=== PATIENT | female | born 1955 | race Two or more races ===

== ENCOUNTER 2025-03-04 22:42 | Inpatient (IN) | payer OTHER ==
[~2025-03-04] VITALS: Ht 157.5 cm; Wt 99.6 kg
[~2025-03-04 22:42] MED LIST: ALBU108A5 IN; AMIO200T33 PO; APIX5TAB PO; LOSA-534 PO; METO25TA5 PO; PERCOT PO; PRAV20TA3 PO; TRAZ-181 PO
[2025-03-04] MEDS: ALBUTEROL SULF 2.5 MG/0.5ML(0.5%) NEB SOLN NEB ONE ×2 (23:09→23:59)
[2025-03-04] MEDS: IPRATROPIUM BROM 0.5 MG/2.5ML INH SOL NEB ONE (23:10)
--- NOTE | 2025-03-04 23:10 | ECG ---
[facility] Test Date: 2025-03-04 Test Time: 23:08:52 Pat Name: SOFIA FELIX Department: ED Room: 0273 Gender: F Hand Decorator: mitchell : 1955 Requested By: EMERGENCY EMERGENCY Order Number: [id number] Reading MD: Facundo Oden Measurements Intervals [place] Rate: 74 P: 58 CT: 160 QRS: 43 QRSD: 93 T: 47 QT: 398 QTc: 442 Interpretive Statements Sinus rhythm Low voltage, precordial leads Electronically Signed On 03-07-2025 15:26:02 PST by Facundo Oden Please click the below link to view image of tracing.
--- NOTE | 2025-03-04 23:41 | ED.PDOC ---
History of Present Illness HPI Comments 70-year-old female who came to ER due to shortness of breath. Patient does have history of hypertension and asthma. States for the past week she has been experiencing dry cough and shortness of breath. Patient was seen 5 days ago by her primary care provider, was prescribed azithromycin and promethazine but offered no relief. Inhalers taken offering no relief. Progressive worsening of shortness of breath with wheezing and chest tightness. Saturating 94% on room air upon arrival. REVIEW OF SYSTEMS: General: No fever, no chills, or fatigue HEENT: No sore throat, no earache, no congestion, no neck pain. Cardiac: (+) chest pain. No palpitations. Lungs: (+) shortness of breath, (+) cough. (+) wheezing GI: No nausea, no vomiting, no diarrhea, no constipation, no abdominal pain : No dysuria, frequency, or urgency. No hematuria. Musculoskeletal: No joint pain , no joint swelling, no extremity edema. Skin: No rash, no itching. Neuro: No headache, no dizziness, no weakness EXAM: General: Awake, alert and oriented. No acute distress. Skin: Skin in warm, dry and intact. Appropriate color for ethnicity. HEENT: The head is normocephalic and atraumatic. Conjunctivae are clear without exudates or hemorrhage. Sclera is non-icteric. EOM are intact. No signs of nystagmus. Eyelids are normal in appearance without swelling or lesions. Oral mucosa is pink and moist Neck: The neck is supple with normal range of motion. No JVD. Cardiac: Heart rate and rhythm are normal. No murmurs, gallops, or rubs are auscultated. Respiratory: No signs of respiratory distress. Bilateral wheezing Abdominal: Abdomen is soft, non-tender without distention. Bowel sounds are present and normoactive in all four quadrants. Extremities: Upper and lower extremities are atraumatic in appearance without deformity or edema. Neurological: The patient is awake, alert and oriented to person, place, and time with normal speech. Speech is clear. Normal gait Chief Complaint: Shortness of Breath Time Seen by MD: 23:41 Primary Care Provider: ROBERT Reviewed Notes: Nurses Notes Allergies: Coded Allergies: NO KNOWN ALLERGIES (Unverified , 11/24/22) Home Meds Active Scripts Metoprolol Tartrate (Metoprolol Tartrate) 25 Mg Tab, 0.5 TAB PO BID for 30 Days, #30 TAB 5 Refills Prov:MELISSA QUINONEZ MD 11/27/22 Amiodarone Hcl (Amiodarone Hcl) 200 Mg Tab, 1 TAB PO DAILY, #30 TAB 5 Refills Prov:MELISSA QUINONEZ MD 11/27/22 Apixaban Base (ELIQUIS) 5 Mg Tab, 5 MG PO BID for 30 Days, #60 TAB Prov:MELISSA QUINONEZ MD 11/27/22 Reported Medications Albuterol Sulfate (Albuterol Sulfate Hfa) 108 Mcg/Act Aer, 90 MCG IN, AER 11/25/22 Losartan Potassium (Losartan Potassium) 50 Mg Tab, 50 MG PO DAILY for 30 Days, MG 11/25/22 Oxycodone W/ Acetaminophen (Percocet 5/325MG) 1 Tab Tb, 1 TAB PO QID, #120 TAB 11/25/22 Trazodone HCl (Trazodone Hydrochloride) 50 Mg Tab, 50 MG PO PRN for BED TIME, TAB 11/25/22 Pravastatin Sodium (PRAVACHOL TABLET) 20 Mg Tb, 80 MG PO DAILY, TAB 11/25/22 Information Source: Patient Mode of Arrival: Ambulatory Past Medical History PAST MEDICAL HISTORY: AFIB, Asthma, High Lipids, HTN Surgical History: Cholecystectomy, Hysterectomy, Tonsillectomy REPLACER History: Denies all REPLACER Hx Family History Family History: Reviewed,noncontributory to illness Social History Smoker: Non-Smoker Alcohol: Denies ETOH Use Drugs: Denies Drug Use Lives In: Home Was a procedure done? Was a procedure done?: No EKG EKG : Pulse Rate (adult): 74 Cardiac Rhythm: NSR Comments No STEMI Differential Dx Considerations may include: Differential diagnoses considered includebut arenot limited to acute Bronchitis, Asthma, COPD, Pneumothorax, PE, CHF, Pulmonary HTN, Anemia, CO Poisoning, Methemoglobinemia, Hyperventilation, Metabolic Acidosis, Pulmonary Edema, Pneumonia, ACS, Pericardial Tamponade, Anxiety, other X-Ray, Labs, Meds, VS Vital Signs Date Time Temp Pulse Resp B/P (MAP) Pulse Ox O2 Delivery O2 Flow Rate FiO2 03/05/25 00:24 98.1 92 20 143/57 95 21 98.1 03/05/25 00:24 98.1 92 20 143/57 (85) 95 98.1 03/05/25 00:24 20 95 Room Air* 0 03/04/25 23:59 24 94 Room Air* 0 03/04/25 23:41 74 03/04/25 23:10 22 92 Room Air* 0 03/04/25 23:08 74 03/04/25 22:44 97.3 80 20 170/80 94 97.3 Lab Test 03/05/25 00:19 03/04/25 23:56 Range/Units Urine Color Yellow Yellow Urine Clarity Turbid H Clear Urine pH 6.0 5.0-9.0 Urine Specific [place] 1.018 1.001-1.035 Urine Protein Trace H Negative Urine Ketones Negative Negative Urine Blood Negative Negative /uL Urine Nitrite Negative Negative Urine Bilirubin Negative Negative Urine Urobilinogen Normal Negative mg/dL Urine Leukocyte Esterase 2+ Negative /uL Urine RBC 2 0 - 4 /hpf Urine Microscopic WBC 6 H 0-5 /HPF Urine Squamous Epithelial Cells Few <5 /hpf Urine Calcium Oxalate Crystals Mod None Seen Urine Bacteria None seen None Seen /hpf Urine Hyaline Casts Few 0 - 2 /lpf Urine Mucus Few None Seen Urine Glucose Normal Normal mg/dL White Blood Count 10.5 4.4-10.8 10^3/uL Red Blood Count 4.35 4.0-5.20 10^6/uL Hemoglobin 14.2 12.2-16.2 g/dL Hematocrit 41.3 36.0-46.0 % Mean Corpuscular Volume 94.9 80.0-100.0 fL Mean Corpuscular Hemoglobin 32.5 H 28.0-32.0 pg Mean Corpuscular Hemoglobin Concent 34.3 32.0-36.0 g/dL Red Cell Distribution Width 13.5 11.8-14.3 % Platelet Count 346 140-450 10^3/uL Mean Platelet Volume 7.8 6.9-10.8 fL Neutrophils (%) (Auto) 65.0 37.0-80.0 % Lymphocytes (%) (Auto) 21.9 10.0-50.0 % Monocytes (%) (Auto) 7.1 0.0-12.0 % Eosinophils (%) (Auto) 4.7 0.0-7.0 % Basophils (%) (Auto) 1.3 0.0-2.0 % Neutrophils # (Auto) 6.8 1.6-8.6 10 ^3/uL Lymphocytes # (Auto) 2.3 0.4-5.4 10 ^3/uL Monocytes # (Auto) 0.7 0-1.3 10 ^3/uL Eosinophils # (Auto) 0.5 0-0.8 10 ^3/uL Basophils # (Auto) 0.1 0-0.2 10 ^3/uL Nucleated Red Blood Cells 0.3 % Sodium Level 141 136-145 mmol/L Potassium Level 4.1 3.5-5.1 mmol/L Chloride Level 108 H 98-107 mmol/L Carbon Dioxide Level 22 20-31 mmol/L Anion Gap 11 5-15 Blood Urea Nitrogen 6 L 9-23 mg/dL Creatinine 0.62 0.550-1.02 mg/dL Glomerular Filtration Rate Calc 96 >90 mL/min BUN/Creatinine Ratio 9.7 L 10.0-20.0 Serum Glucose 119 H 74-106 mg/dL Calcium Level 9.2 8.7-10.4 mg/dL Troponin I High Sensitivity 4 </=34 ng/L B-Type Natriuretic Peptide 65.47 0-100 pg/mL CHEST RADIOGRAPH INDICATION: Cough, wheezing, shortness of breath TECHNIQUE: Frontal and lateral view of the chest was obtained COMPARISON: XY CHEST PORTABLE on DOS: 11/24/22 FINDINGS: Lines and Tubes: None Lungs: Mild left basilar opacity. Pleura: No effusion. No pneumothorax. Cardiomediastinal contours: Unremarkable Bones: Unremarkable IMPRESSION: Mild left basilar opacity, favored atelectatic although difficult to exclude pneumonia. Time of 1ST Reevaluation: 23:38 Reevaluation 1ST: Unchanged Patient Education/Counseling: Need For Follow Up Family Education/Counseling: No Family Present SEPSIS Sepsis Screen Date sepsis recognized/suspect: Mar 04, 2025 Time Sepsis recognized/suspect: 2244 Recent Procedure: No On Antibiotic Therapy: No Respiratory Rate >20: No Heart Rate >90: No Temp<36 C (96.8 F) or >38.3 C: No SBP <90 or MAP <65 mmHG: No New Acute Mental Status Change: No Is the patient on CPAP, BIPAP,: No Physician Orders Electrocardigram (03/04/25 22:49) Electrocardigram (03/04/25 23:49) Electrocardigram (03/05/25 01:49) Chest Two Views Routine (03/04/25 23:42) Vital Signs Date Time Temp Pulse Resp B/P (MAP) Pulse Ox O2 Delivery O2 Flow Rate FiO2 03/05/25 00:24 98.1 92 20 143/57 95 21 98.1 03/05/25 00:24 98.1 92 20 143/57 (85) 95 98.1 03/05/25 00:24 20 95 Room Air* 0 21 03/04/25 23:59 24 94 Room Air* 0 21 21 03/04/25 23:41 74 03/04/25 23:10 22 92 Room Air* 0 21 03/04/25 23:08 74 03/04/25 22:44 97.3 80 20 170/80 94 97.3 Laboratory Tests Test 03/04/25 23:56 White Blood Count 10.5 10^3/uL (4.4-10.8) Departure 1 Departure Time of Disposition: 01:31 Impression: Primary Impression: Pneumonia Disposition: 09 ADMITTED INPATIENT Condition: Stable Comments 70-year-old female with asthma, cough, shortness of breath. Failed course of outpatient antibiotics. IV antibiotics initiated in the ED. Patient admitted to hospitalist service for further treatment, evaluation and monitoring. Critical Care Note Critical Care Time?: No Stability Stability form required: No Heart Score Heart Score: Heart Score Response (Comments) Value History N/A 0 EKG N/A 0 Age N/A 0 Risk Factors N/A 0 Troponin N/A 0 Total 0 I personally scribed for REGAN CHRISTIANSEN MD ([email or web address]) on 03/04/25 at 23:41. Electronically submitted by Hasmukh Batista ([email or web address]). I personally scribed for REGAN CHRISTIANSEN MD ([email or web address]) on 03/05/25 at 01:08. Electronically submitted by Hasmukh Batista ([employer]). REGAN CHRISTIANSEN MD Mar 04, 2025 23:41
[2025-03-05] VITALS (11 sets, daily range): BP systolic 112–143; BP diastolic 53–109; PULSE 67–103; RESP 16–20; TEMP 96.8–98.6; O2SAT 92–99
[2025-03-05 00:14] LABS: Potassium 4.1 mmol/L (3.5-5.1); Sodium 141 mmol/L (136-145)
[2025-03-05 00:15] LABS: Anion Gap 11 (5-15); Carbon Dioxide 22 mmol/L (20-31)
[2025-03-05 00:16] LABS: Calcium 9.2 mg/dL (8.7-10.4); Chloride 108 mmol/L (98-107)
[2025-03-05 00:21] LABS: BUN/Creatinine Ratio 9.7 (10.0-20.0)
[2025-03-05 00:29] LABS: Blood Urea Nitrogen 6 mg/dL (9-23); Glucose 119 mg/dL (74-106)
--- NOTE | 2025-03-05 00:31 | DVH ---
CHEST RADIOGRAPH INDICATION: Cough, wheezing, shortness of breath TECHNIQUE: Frontal and lateral view of the chest was obtained COMPARISON: XY CHEST PORTABLE on DOS: 11/24/22 FINDINGS: Lines and Tubes: None Lungs: Mild left basilar opacity. Pleura: No effusion. No pneumothorax. Cardiomediastinal contours: Unremarkable Bones: Unremarkable IMPRESSION: Mild left basilar opacity, favored atelectatic although difficult to exclude pneumonia.
[2025-03-05 00:33] LABS: Hematocrit 41.3 % (36.0-46.0); Hemoglobin 14.2 g/dL (12.2-16.2); Mean Corpuscular Hemoglobin 32.5 pg (28.0-32.0); Mean Corpuscular Volume 94.9 fL (80.0-100.0); Nucleated Red Blood Cells % 0.3 %
[2025-03-05] MEDS: SODIUM CHLORIDE 0.9% 500 ML IV ONE (01:45)
[2025-03-05] MEDS ORDERED: ONDANSETRON HCL 4 MG/2 ML VIAL IV PRN (02:00)
[2025-03-05] MEDS ORDERED: HYDROcodone-ACET 5/325MG TAB PO PRN (02:00)
[2025-03-05 02:52] LABS: COVID19 ANTIGEN SOFIA FIA NEGATIVE (NEGATIVE)
--- NOTE | 2025-03-05 04:35 | DVHHP2 ---
History of Present Illness Reason for Visit: Shortness for breath History of Present Illness 70-year-old female presents for evaluation of shortness for breath. Patient reports a one-week history of shortness for breath associated cough. Denies fever or chills. Reports chest tightness. Past Medical History Hypertension, dyslipidemia, asthma, atrial fibrillation Past Surgical History Hysterectomy, tonsillectomy, cholecystectomy Family History Noncontributory Smoke: No ALCOHOL: none Drugs: None Lives: with Family Review of Systems Review of Systems Review of systems are currently negative otherwise addressed in HPI. Allergies: Coded Allergies: NO KNOWN ALLERGIES (Unverified , 11/24/22) Medications Current Medications Medications Dose Ordered Sig/Aida Route Start Time Stop Time Status Last Admin Dose Admin Guaifenesin/ Codeine Phosphate 5 ml Q6HPRN PRN PO 03/05/25 02:00 Ceftriaxone Sodium 50 ml @ 100 mls/hr DAILY@09 IV 03/05/25 09:00 UNV Azithromycin 250 ml @ 125 mls/hr DAILY IV 03/05/25 10:00 Albuterol 2.5 mg Q6HPRN PRN NEB 03/05/25 02:00 Ipratropium [place] 0.5 mg Q6HPRN PRN NEB 03/05/25 02:00 Apixaban 5 mg BID PO 03/05/25 10:00 Losartan Potassium 50 mg DAILY PO 03/05/25 10:00 Metoprolol Tartrate 12.5 mg BID PO 03/05/25 10:00 Amiodarone HCl 200 mg DAILY PO 03/05/25 10:00 Pravastatin Sodium 40 mg HS PO 03/05/25 22:00 Acetaminophen/ Hydrocodone Bitart 1 tab Q4HP PRN PO 03/05/25 02:00 Ondansetron HCl 4 mg Q4HP PRN IV 03/05/25 02:00 Acetaminophen 650 mg Q6HP PRN PO 03/05/25 02:00 Ceftriaxone Sodium 50 ml @ 100 mls/hr DAILY@09 IV 03/06/25 02:00 Exam Vital Signs Vital Signs Date Time Temp Pulse Resp B/P (MAP) Pulse Ox O2 Delivery O2 Flow Rate FiO2 03/05/25 00:24 98.1 92 20 143/57 95 21 98.1 03/05/25 00:24 Room Air* 0 Exam Gen: 70-year-old female in mild distress Skin: Warm, dry, normal color and texture, no rash. HEENT: Normocephalic atraumatic, mucous membranes moist and pink. Neck: Cervical and supraclavicular nodes normal without enlargement, trachea is midline, thyroid gland is normal without masses. Pulmonary: Clear to auscultation and percussion bilaterally. Cardiac: Regular rate and rhythm. No murmur Abdomen: Soft, nontender, nondistended, bowel sounds present all 4 quadrants, no guarding, no rigidity, no organomegaly. Extremities: No cyanosis, clubbing, no edema Neuro: Cranial nerves II through XII grossly intact, normal affect and speech, no focal motor deficits. Labs/Xrays ORDERING PHYSICIAN: REGAN CHRISTIANSEN MD PROCEDURE(s): CXR2 - CHEST TWO VIEWS ROUTINE REASON: Cough, wheezing, shortness of breath ORDER NUMBER(s): [id number], ACCESSION NUMBER(s): [id number] CHEST RADIOGRAPH INDICATION: Cough, wheezing, shortness of breath TECHNIQUE: Frontal and lateral view of the chest was obtained COMPARISON: XY CHEST PORTABLE on DOS: 11/24/22 FINDINGS: Lines and Tubes: None Lungs: Mild left basilar opacity. Pleura: No effusion. No pneumothorax. Cardiomediastinal contours: Unremarkable Bones: Unremarkable IMPRESSION: Mild left basilar opacity, favored atelectatic although difficult to exclude pneumonia. Labs Test 03/05/25 01:52 03/05/25 00:19 03/04/25 23:56 Range/Units Influenza Type A Antigen Negative Negative Influenza Type B Antigen Negative Negative SARS-CoV-2 Antigen (Rapid) Negative NEGATIVE White Blood Count 10.5 4.4-10.8 10^3/uL Red Blood Count 4.35 4.0-5.20 10^6/uL Hemoglobin 14.2 12.2-16.2 g/dL Hematocrit 41.3 36.0-46.0 % Mean Corpuscular Volume 94.9 80.0-100.0 fL Mean Corpuscular Hemoglobin 32.5 H 28.0-32.0 pg Mean Corpuscular Hemoglobin Concent 34.3 32.0-36.0 g/dL Red Cell Distribution Width 13.5 11.8-14.3 % Platelet Count 346 140-450 10^3/uL Mean Platelet Volume 7.8 6.9-10.8 fL Neutrophils (%) (Auto) 65.0 37.0-80.0 % Lymphocytes (%) (Auto) 21.9 10.0-50.0 % Monocytes (%) (Auto) 7.1 0.0-12.0 % Eosinophils (%) (Auto) 4.7 0.0-7.0 % Basophils (%) (Auto) 1.3 0.0-2.0 % Neutrophils # (Auto) 6.8 1.6-8.6 10 ^3/uL Lymphocytes # (Auto) 2.3 0.4-5.4 10 ^3/uL Monocytes # (Auto) 0.7 0-1.3 10 ^3/uL Eosinophils # (Auto) 0.5 0-0.8 10 ^3/uL Basophils # (Auto) 0.1 0-0.2 10 ^3/uL Nucleated Red Blood Cells 0.3 % Sodium Level 141 136-145 mmol/L Potassium Level 4.1 3.5-5.1 mmol/L Chloride Level 108 H 98-107 mmol/L Carbon Dioxide Level 22 20-31 mmol/L Anion Gap 11 5-15 Blood Urea Nitrogen 6 L 9-23 mg/dL Creatinine 0.62 0.550-1.02 mg/dL Glomerular Filtration Rate Calc 96 >90 mL/min BUN/Creatinine Ratio 9.7 L 10.0-20.0 Serum Glucose 119 H 74-106 mg/dL Calcium Level 9.2 8.7-10.4 mg/dL Troponin I High Sensitivity 4 </=34 ng/L B-Type Natriuretic Peptide 65.47 0-100 pg/mL SEPSIS Sepsis Screen Date sepsis recognized/suspect: Mar 05, 2025 Time Sepsis recognized/suspect: 0024 Recent Procedure: No On Antibiotic Therapy: No Respiratory Rate >20: No Heart Rate >90: Yes Temp<36 C (96.8 F) or >38.3 C: No SBP <90 or MAP <65 mmHG: No New Acute Mental Status Change: No Is the patient on CPAP, BIPAP,: No Physician Orders Electrocardigram (03/04/25 23:49) Electrocardigram (03/05/25 01:49) Urinalysis (03/04/25 23:42) Chest Two Views Routine (03/04/25 23:42) Guaifenesin-Codeine Liquid (Robitussin/C (03/05/25 02:00) Azithromycin 500mg/250ml (Zithromax 500m (03/05/25 10:00) Albuterol Medneb (Ventolin Medneb) (03/05/25 02:00) Ipratropium Medneb (Atrovent Medneb) (03/05/25 02:00) Apixaban (Eliquis) (03/05/25 10:00) Losartan Tablet (Cozaar Tablet) (03/05/25 10:00) Metoprolol Tartrate Tablet (Lopressor Ta (03/05/25 10:00) Amiodarone Tablet (Cordarone Tablet) (03/05/25 10:00) Pravastatin Sodium Tablet (Pravachol Tab (03/05/25 22:00) Basic Metabolic Panel (03/06/25 04:00) Admit (03/05/25 01:46) Hydrocodone-Acet 5/325mg Tab ([place] 5/32 (03/05/25 02:00) Ondansetron Hcl (Zofran) (03/05/25 02:00) Cardiac Diet-2gna,Lofat,Lochol (03/05/25 Breakfast) Condition: Stable (03/05/25 01:46) Acetaminophen Tablet (Tylenol Tablet) (03/05/25 02:00) Bedrest With Bathroom Privileg (03/05/25 01:46) Ceftriaxone 1gm/50ml (Rocephin) (03/06/25 02:00) Vital Signs Date Time Temp Pulse Resp B/P (MAP) Pulse Ox O2 Delivery O2 Flow Rate FiO2 03/05/25 00:24 98.1 92 20 143/57 95 21 98.1 03/05/25 00:24 98.1 92 20 143/57 (85) 95 98.1 03/05/25 00:24 20 95 Room Air* 0 21 03/04/25 23:59 24 94 Room Air* 0 21 03/04/25 23:41 74 03/04/25 23:10 22 92 Room Air* 0 21 03/04/25 23:08 74 03/04/25 22:44 97.3 80 20 170/80 94 97.3 Laboratory Tests Test 03/04/25 23:56 White Blood Count 10.5 10^3/uL (4.4-10.8) Medications Medications Dose Ordered Sig/Aida Route Start Time Stop Time Status Last Admin Dose Admin Albuterol 2.5 mg ONCE ONCE NEB 03/04/25 23:00 03/04/25 23:01 DC 03/04/25 23:09 2.5 MG Albuterol 5 mg ONCE ONCE NEB 03/04/25 23:45 03/04/25 23:46 DC 03/04/25 23:59 5 MG Dexamethasone Sodium Phosphate 10 mg ONCE ONCE IM 03/04/25 23:45 03/04/25 23:46 DC 03/05/25 00:16 10 MG Ipratropium [place] 0.5 mg ONCE ONCE NEB 03/04/25 23:00 03/04/25 23:01 DC 03/04/25 23:10 0.5 MG Assessment/Plan Assessment/Plan Assessment Community-acquired pneumonia Hypertension History of AFib Plan Admit the patient to Med surge to the hospitalist Rocephin/azithromycin Med nebs Resume home medications Continue treatment per orders. Plan discussed with: Patient My Orders Orders - LAWANDA SCHMIDT Procedure Category Date Status Time Guaifenesin-Codeine PHA 03/05/25 In Process Liquid (Robitussin/C 02:00 Azithromycin PHA 03/05/25 In Process 500mg/250ml 10:00 Albuterol Medneb PHA 03/05/25 In Process (Ventolin Medneb) 02:00 Ipratropium Medneb PHA 03/05/25 In Process (Atrovent Medneb) 02:00 Apixaban (Eliquis) PHA 03/05/25 In Process 10:00 Losartan Tablet PHA 03/05/25 In Process (Cozaar Tablet) 10:00 Metoprolol Tartrate PHA 03/05/25 In Process Tablet (Lopressor Ta 10:00 Amiodarone Tablet PHA 03/05/25 In Process (Cordarone Tablet) 10:00 Pravastatin Sodium PHA 03/05/25 In Process Tablet (Pravachol Tab 22:00 Basic Metabolic Panel LAB 03/06/25 Verified 04:00 Admit ADMIT 03/05/25 Transmitted 01:46 Hydrocodone-Acet PHA 03/05/25 In Process 5/325mg Tab ([place] 02:00 Ondansetron Hcl PHA 03/05/25 In Process (Zofran) 02:00 Cardiac DIET 03/05/25 Transmitted Diet-2gna,Lofat,Lochol Breakfast Condition: Stable SHANNA 03/05/25 In Process 01:46 Acetaminophen Tablet PHA 03/05/25 In Process (Tylenol Tablet) 02:00 Bedrest With Bathroom SHANNA 03/05/25 In Process Privileg 01:46 Ceftriaxone 1gm/50ml PHA 03/06/25 In Process (Rocephin) 02:00 Date of Service: Mar 05, 2025 Billing Provider: LAWANDA SCHMIDT Common Visit Codes: [id number] INP/OBS CARE (HIGH) LAWANDA SCHMIDT Mar 05, 2025 04:35
[2025-03-05 04:40] LABS: Urine Protein, UAD TRACE (Negative)
[2025-03-05] MEDS: ALBUTEROL SULF 2.5 MG/0.5ML(0.5%) NEB SOLN NEB PRN (07:43)
[2025-03-05] MEDS: IPRATROPIUM BROM 0.5 MG/2.5ML INH SOL NEB PRN (07:43)
[2025-03-05] MEDS: APIXABAN 5 MG TAB PO SCH (09:22)
[2025-03-05] MEDS: AMIODARONE HCL 200 MG TAB PO SCH (09:22)
[2025-03-05] MEDS: ACETAMINOPHEN 325 MG TAB PO PRN (09:22)
[2025-03-05] MEDS: METOPROLOL TARTRATE 25 MG TAB PO SCH (09:24)
[2025-03-05] MEDS: LOSARTAN POTASSIUM 50 MG TAB PO SCH (09:25)
[2025-03-05] MEDS: AZITHROMYCIN 500MG/250ML 250 ML IV SCH (09:25)
[2025-03-05] MEDS: PRAVASTATIN SODIUM 20 MG TAB PO SCH (21:16)
[2025-03-05] MEDS: guaiFENesin-CODEINE Liq 5 ML UD PO PRN (23:10)
[2025-03-06] VITALS (12 sets, daily range): BP systolic 109–123; BP diastolic 60–80; PULSE 55–73; RESP 15–21; TEMP 97.6–98.8; O2SAT 92–98
[2025-03-06 06:26] LABS: Potassium 4.4 mmol/L (3.5-5.1); Sodium 142 mmol/L (136-145)
[2025-03-06 06:27] LABS: Anion Gap 9 (5-15); Calcium 8.7 mg/dL (8.7-10.4); Carbon Dioxide 25 mmol/L (20-31)
[2025-03-06 06:30] LABS: Chloride 108 mmol/L (98-107)
[2025-03-06 06:32] LABS: BUN/Creatinine Ratio 25.4 (10.0-20.0); Blood Urea Nitrogen 15 mg/dL (9-23); Glucose 97 mg/dL (74-106)
[2025-03-06] MEDS: methylPREDNISolone SOD SUCC 40 MG/ML VL IV SCH (12:51)
[2025-03-07] VITALS (12 sets, daily range): BP systolic 113–144; BP diastolic 64–80; PULSE 64–77; RESP 16–18; TEMP 97.5–98.8; O2SAT 90–99
--- NOTE | 2025-03-07 08:11 | DVHPN2 ---
Reviewed: Care Plan, H&P, Medications Changes from previous H/P or p: No Changes General: Per HPI Objective Vitals Vital Signs Date Time Temp Pulse Resp B/P (MAP) Pulse Ox O2 Delivery O2 Flow Rate FiO2 03/07/25 05:00 97.7 73 18 114/76 (89) 90 97.7 03/06/25 21:10 Room Air* 0 21 Intake/Output Intake and Output 03/07/25 07:00 Intake Total 1400 ml Balance 1400 ml Intake Oral 1400 ml # Voids 8 General Appearance: Alert, Oriented X3, Cooperative, No acute distress HEENT: Atraumatic Cardiovascular: Normal S1 Neuro: Normal gait Medications Current Medications Medications Dose Ordered Sig/Aida Route Start Time Stop Time Status Last Admin Dose Admin Guaifenesin/ Codeine Phosphate 5 ml Q6HPRN PRN PO 03/05/25 02:00 03/06/25 23:19 5 ML Ceftriaxone Sodium 50 ml @ 100 mls/hr DAILY@09 IV 03/05/25 09:00 UNV Azithromycin 250 ml @ 125 mls/hr DAILY IV 03/05/25 10:00 03/06/25 10:14 125 MLS/HR Albuterol 2.5 mg Q6HPRN PRN NEB 03/05/25 02:00 03/06/25 21:10 2.5 MG Ipratropium [place] 0.5 mg Q6HPRN PRN NEB 03/05/25 02:00 03/06/25 21:09 0.5 MG Apixaban 5 mg BID PO 03/05/25 10:00 03/06/25 21:04 5 MG Losartan Potassium 50 mg DAILY PO 03/05/25 10:00 Metoprolol Tartrate 12.5 mg BID PO 03/05/25 10:00 03/06/25 21:04 12.5 MG Amiodarone HCl 200 mg DAILY PO 03/05/25 10:00 03/05/25 09:22 200 MG Pravastatin Sodium 40 mg HS PO 03/05/25 22:00 03/06/25 21:04 40 MG Acetaminophen/ Hydrocodone Bitart 1 tab Q4HP PRN PO 03/05/25 02:00 Ondansetron HCl 4 mg Q4HP PRN IV 03/05/25 02:00 Acetaminophen 650 mg Q6HP PRN PO 03/05/25 02:00 03/05/25 09:22 650 MG Ceftriaxone Sodium 50 ml @ 100 mls/hr DAILY@09 IV 03/06/25 02:00 03/06/25 03:01 100 MLS/HR Methylprednisolone Sodium Succinate 40 mg Q6HR IV 03/06/25 12:00 03/07/25 06:22 40 MG Laboratory Results Laboratory Tests 03/04/25 23:56 03/06/25 05:04 Urinalysis Test 03/05/25 00:19 Urine Color Yellow (Yellow) Urine Clarity Turbid (Clear) H Urine pH 6.0 (5.0-9.0) Urine Specific [place] 1.018 (1.001-1.035) Urine Protein Trace (Negative) H Urine Ketones Negative (Negative) Urine Blood Negative /uL (Negative) Urine Nitrite Negative (Negative) Urine Bilirubin Negative (Negative) Urine Urobilinogen Normal mg/dL (Negative) Urine Leukocyte Esterase 2+ /uL (Negative) Urine RBC 2 /hpf (0 - 4) Urine Microscopic WBC 6 /HPF (0-5) H Urine Squamous Epithelial Cells Few /hpf (<5) Urine Calcium Oxalate Crystals Mod (None Seen) Urine Bacteria None seen /hpf (None Seen) Urine Hyaline Casts Few /lpf (0 - 2) Urine Mucus Few (None Seen) Urine Glucose Normal mg/dL (Normal) Labs and/or images reviewed: Labs reviewed by me, Image(s) reviewed by me Assessment/Plan Assessment/Plan 70-year-old female presents for evaluation of shortness for breath. Patient reports a one-week history of shortness for breath associated cough. Denies fever or chills. Reports chest tightness. Community-acquired pneumonia (gram positive/Gram negative) coughing wheezing/dyspnea obesity Hypertension History of AFib 03/06/2025 continue with tx of PNA still has a lot of coughing started on steroid also Plan discussed with: Patient My Orders Orders - MODESTO CERRATO DO Procedure Category Date Status Time Methylprednisolone PHA 03/06/25 In Process Sod Succ (Solu Medrol 12:00 Date of Service: Mar 05, 2025 Billing Provider: MODESTO CERRATO DO Common Visit Codes: [id number] INP/OBS CARE(HIGH) MODESTO CERRATO DO Mar 07, 2025 08:11
--- NOTE | 2025-03-07 15:58 | DVHPN2 ---
Assessment/Plan Assessment/Plan 70 F with asthma (possibly seasonal), HTN, HLD, afib admitted for SOB. started on breathing treatment and abx for pna coverage. 03/07 still wheezing, given mag physical exam aox4 mmm mild wheezing s1 s2 irregular abdomen soft nontender no le edema labs ekg imaging reviewed assessment and plan acute hypoxic RF PNA GP vs GN asthma exacerbation morbid obesity treating GERD, rhinitis allergy, PND nebs switch steroid to prednisone ceft azithro to levoquin flonase, pepcid, loratadine maintain o2 >92% diet [place] dvt ppx ac full code Plan discussed with: Patient Date of Service: Mar 07, 2025 Billing Provider: OANH WANG MD Common Visit Codes: [id number] INP/OBS CARE(HIGH) OANH WANG MD Mar 07, 2025 15:58
[2025-03-07] MEDS: LORATADINE 10 MG TAB PO ONE (16:15)
[2025-03-07] MEDS: MAGNESIUM SULFATE 1GM/100ML 100 ML IV SCH (16:15)
[2025-03-07] MEDS: FAMOTIDINE 20 MG TAB PO SCH (21:28)
[2025-03-07] MEDS: guaiFENesin-DM 100/10mg/5ml SYR PO PRN (23:14)
[2025-03-07] MEDS: FLUTICASONE PROP NASAL SPR 0.05 % (50MCG) 16GM EACHNOSTRI SCH (23:15)
[2025-03-08] VITALS (12 sets, daily range): BP systolic 94–151; BP diastolic 60–92; PULSE 55–74; RESP 18–20; TEMP 97.5–98.6; O2SAT 91–99
[2025-03-08] MEDS: LORATADINE 10 MG TAB PO SCH (10:00)
[2025-03-08] MEDS: predniSONE 20 MG TAB PO SCH (10:56)
--- NOTE | 2025-03-08 16:42 | DVHPN2 ---
Assessment/Plan Assessment/Plan 70 F with asthma (possibly seasonal), HTN, HLD, afib admitted for SOB. started on breathing treatment and abx for pna coverage. 03/07 still wheezing, given mag 03/08 improved, no wheezing, switch to PO, discharge expected tomorrow PM, pt with transport at that time physical exam aox4 mmm mild wheezing s1 s2 irregular abdomen soft nontender no le edema labs ekg imaging reviewed assessment and plan acute hypoxic RF PNA GP vs GN asthma exacerbation morbid obesity treating GERD, rhinitis allergy, PND nebs switch steroid to prednisone ceft azithro to levoquin flonase, pepcid, loratadine maintain o2 >92% diet [place] dvt ppx ac full code Plan discussed with: Patient My Orders Orders - OANH WANG MD Procedure Category Date Status Time Levofloxacin Tablet PHA 03/09/25 Logged (Levaquin Tablet) 10:00 Date of Service: Mar 08, 2025 Billing Provider: OANH WANG MD Common Visit Codes: [id number] INP/OBS CARE(HIGH) OANH WANG MD Mar 08, 2025 16:42
[2025-03-08] MEDS ORDERED: FLUT1SPR5 (16:53)
[2025-03-08] MEDS ORDERED: MOME1AER3 INH (16:53)
[2025-03-08] MEDS ORDERED: LORA-622 PO (16:53)
[2025-03-08] MEDS ORDERED: ALBU108A5 IN (16:53)
[2025-03-08] MEDS ORDERED: FAMO-161 PO (16:53)
[2025-03-08] MEDS ORDERED: PRED20TA2 PO (16:53)
[2025-03-09] VITALS (9 sets, daily range): BP systolic 101–131; BP diastolic 60–88; PULSE 52–72; RESP 16–20; TEMP 98.2–98.9; O2SAT 92–99
[2025-03-09] MEDS: levoFLOXacin 250 MG TAB PO SCH (09:06)
--- NOTE | 2025-03-09 09:38 | DVHDS2 ---
Discharge Summary Date of Admission Mar 05, 2025 at 01:46 Date of Discharge: Mar 09, 2025 Labs/Diagnostic Data: Laboratory Results Test 03/07/25 10:51 03/06/25 05:04 03/05/25 01:52 03/05/25 00:19 POC Glucose 142 mg/dl (70-106) Sodium Level 142 mmol/L (136-145) Potassium Level 4.4 mmol/L (3.5-5.1) Chloride Level 108 mmol/L (98-107) Carbon Dioxide Level 25 mmol/L (20-31) Anion Gap 9 (5-15) Blood Urea Nitrogen 15 mg/dL (9-23) Creatinine 0.59 mg/dL (0.550-1.02) Glomerular Filtration Rate Calc 97 mL/min (>90) BUN/Creatinine Ratio 25.4 (10.0-20.0) Serum Glucose 97 mg/dL (74-106) Calcium Level 8.7 mg/dL (8.7-10.4) Influenza Type A Antigen Negative (Negative) Influenza Type B Antigen Negative (Negative) SARS-CoV-2 Antigen (Rapid) Negative (NEGATIVE) Urine Color Yellow (Yellow) Urine Clarity Turbid (Clear) Urine pH 6.0 (5.0-9.0) Urine Specific [place] 1.018 (1.001-1.035) Urine Protein Trace (Negative) Urine Ketones Negative (Negative) Urine Blood Negative /uL (Negative) Urine Nitrite Negative (Negative) Urine Bilirubin Negative (Negative) Urine Urobilinogen Normal mg/dL (Negative) Urine Leukocyte Esterase 2+ /uL (Negative) Urine RBC 2 /hpf (0 - 4) Urine Microscopic WBC 6 /HPF (0-5) Urine Squamous Epithelial Cells Few /hpf (<5) Urine Calcium Oxalate Crystals Mod (None Seen) Urine Bacteria None seen /hpf (None Seen) Urine Hyaline Casts Few /lpf (0 - 2) Urine Mucus Few (None Seen) Urine Glucose Normal mg/dL (Normal) Test 03/04/25 23:56 White Blood Count 10.5 10^3/uL (4.4-10.8) Red Blood Count 4.35 10^6/uL (4.0-5.20) Hemoglobin 14.2 g/dL (12.2-16.2) Hematocrit 41.3 % (36.0-46.0) Mean Corpuscular Volume 94.9 fL (80.0-100.0) Mean Corpuscular Hemoglobin 32.5 pg (28.0-32.0) Mean Corpuscular Hemoglobin Concent 34.3 g/dL (32.0-36.0) Red Cell Distribution Width 13.5 % (11.8-14.3) Platelet Count 346 10^3/uL (140-450) Mean Platelet Volume 7.8 fL (6.9-10.8) Neutrophils (%) (Auto) 65.0 % (37.0-80.0) Lymphocytes (%) (Auto) 21.9 % (10.0-50.0) Monocytes (%) (Auto) 7.1 % (0.0-12.0) Eosinophils (%) (Auto) 4.7 % (0.0-7.0) Basophils (%) (Auto) 1.3 % (0.0-2.0) Neutrophils # (Auto) 6.8 10 ^3/uL (1.6-8.6) Lymphocytes # (Auto) 2.3 10 ^3/uL (0.4-5.4) Monocytes # (Auto) 0.7 10 ^3/uL (0-1.3) Eosinophils # (Auto) 0.5 10 ^3/uL (0-0.8) Basophils # (Auto) 0.1 10 ^3/uL (0-0.2) Nucleated Red Blood Cells 0.3 % Troponin I High Sensitivity 4 ng/L (</=34) B-Type Natriuretic Peptide 65.47 pg/mL (0-100) Other Laboratory Tests 03/06/25 05:04 03/04/25 23:56 Brief Hx & Hospital Course: 70 F with asthma (possibly seasonal), HTN, HLD, afib admitted for SOB. started on breathing treatment and abx for pna coverage. 03/07 still wheezing, given mag 03/08 improved, no wheezing, switch to PO, discharge expected tomorrow PM, pt with transport at that time stable for discharge today. discharged with albuterol, dulera, flonase, loratadine and pepcid. f/u w pcp. will need to see exploration driller outpatient Condition at Discharge: Stable Final Diagnosis/Problems List acute hypoxic RF PNA GP vs GN asthma exacerbation morbid obesity treating GERD, rhinitis allergy, PND Discharge Disposition: Home Discharge Instruct/Medications Diet: Consistent carbohydrate, Cardiac 2g Na,low cholest Activity: No Restrictions, As Tolerated Medications: levofloxacin dulera albuterol flonase loratadin pepcid prednisone Scheduled Amiodarone Hcl (Amiodarone Hcl), 1 TAB PO DAILY Apixaban Base (Eliquis), 5 MG PO BID Famotidine (Pepcid AC), 20 MG PO DAILY Famotidine (Pepcid AC), 20 MG PO DAILY Fluticasone Propionate (Nasal) (Flonase Allergy Relief), 50 MCG NA BID Fluticasone Propionate (Nasal) (Flonase Allergy Relief), 50 MCG NA BID Levofloxacin Hemihydrate (Levofloxacin), 1 TAB PO DAILY Loratadine (Claritin), 1 TAB PO DAILY Loratadine (Claritin), 1 TAB PO DAILY Losartan Potassium (Losartan Potassium), 50 MG PO DAILY, (Reported) Metoprolol Tartrate (Metoprolol Tartrate), 0.5 TAB PO BID Mometasone Furoate-Formoterol (Dulera), 2 PUFF INH BID Mometasone Furoate-Formoterol (Dulera), 2 PUFF INH BID Oxycodone W/ Acetaminophen (Percocet 5/325MG), 1 TAB PO QID, (Reported) Pravastatin Sodium (Pravachol Tablet), 80 MG PO DAILY, (Reported) Prednisone (Prednisone), 40 MG PO DAILY Prednisone (Prednisone), 40 MG PO DAILY Trazodone HCl (Trazodone Hydrochloride), 50 MG PO PRN, (Reported) Scheduled PRN Albuterol Sulfate (Albuterol Sulfate Hfa), 108 MCG IN Q4HP PRN Albuterol Sulfate (Albuterol Sulfate Hfa), 108 MCG IN Q4HP PRN Miscellaneous Medications Albuterol Sulfate (Albuterol Sulfate Hfa), 90 MCG IN, (Reported) Discharge Statement: "Patient was advised to return to the ER or call 911 if any headaches, dizziness, shortness of breath, chest pain, abdominal pain, bleeding, fevers, or worsening of medical condition. Patient was counseled about treatment plan, medications, possible side effects, patientverbalized understanding. All questions were answered to the best of my ability. This discharge took greater then 30 minutes in planning, reviewing documentation, counseling the patient, and discussing with other team members." ASSESSMENT ASSESSMENT Assessment asthma exacerbation PNA gp vs GN Date of Service: Mar 09, 2025 Billing Provider: OANH WANG MD Common Visit Codes: 53231-MJC/OBS DISCH DAY >30min OANH WANG MD Mar 09, 2025 09:38
[2025-03-09] MEDS ORDERED: LEVO750T40 PO (10:10)
--- NOTE | 2025-03-12 09:57 | ECG ---
[facility] Test Date: 2025-03-09 Test Time: 06:47:08 Pat Name: SOFIA FELIX Department: Room: 0273 A Gender: F [employer]: james : 1955 Requested By: EMERGENCY EMERGENCY Order Number: [id number] Reading MD: Facundo Oden Measurements Intervals [place] Rate: 51 P: 46 SC: 165 QRS: 23 QRSD: 102 T: 23 QT: 437 QTc: 403 Interpretive Statements Sinus rhythm Low voltage, precordial leads Electronically Signed On 03-17-2025 15:59:32 PST by Facundo Oden Please click the below link to view image of tracing.
== END 2025-03-09 13:17 | disposition home or self-care (01) | DRG 177 ==
LOC: ER 22:42 → OVERFLOW 03-05 01:46 → WEST WING 03-05 04:48
PROVIDERS: ADMIT Student in an Organized Health Care Education/Training Program; ATTEND Student in an Organized Health Care Education/Training Program
DX: J15.69 Pneumonia due to other Gram-negative bacteria (principal); J96.01 Acute respiratory failure with hypoxia; J15.9 Unspecified bacterial pneumonia; J45.901 Unspecified asthma with (acute) exacerbation; E66.01 Morbid (severe) obesity due to excess calories; I10 Essential (primary) hypertension; Z68.41 Body mass index [BMI] 40.0-44.9, adult; I48.91 Unspecified atrial fibrillation; Z20.822 Contact with and (suspected) exposure to COVID-19; J31.0 Chronic rhinitis; K21.9 Gastro-esophageal reflux disease without esophagitis; E78.5 Hyperlipidemia, unspecified; Z90.710 Acquired absence of both cervix and uterus; Z90.49 Acquired absence of other specified parts of digestive tract
CPT/HCPCS: 36415; 71046; 80048; 81001; 82962; 83880; 84484; 85025; 87426; 87804; 93005; 94640; 96360; 96372; G0378; J1100